=== PATIENT | male | born 1950 | race American Indian/Alaskan Native ===

== ENCOUNTER 2017-11-29 20:52 | Emergency (ER) | payer OTHER, MEDICARE ==
[2017-11-29] MEDS ORDERED: ZOFRAN IV ONE (21:23)
[2017-11-29] MEDS ORDERED: SUBLIMAZE IV ONE (21:23)
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
[2017-11-29] MEDS ORDERED: TYLENOL ONE (22:08)
[2017-11-29] MEDS ORDERED: TYLENOL PO ONE (22:09)
--- NOTE | 2017-11-29 22:19 | Cat Scan Report ---
FINAL REPORT PROCEDURE: CT cervical spine without contrast. TECHNIQUE: Computerized tomography of the cervical spine was performed from the skull base to T1 without contrast material. HISTORY: Left lateral low neck pain. COMPARISON: No prior studies are available for comparison. FINDINGS: The cervical vertebrae have normal height and alignment. There are no fractures. There is no subluxation. There is moderate disc space narrowing from C3-4 through C7-T1. There are small vertebral body osteophytes in the mid and lower cervical spine. The spinal canal is adequately patent. The facet joints appear satisfactory. There is mild osteophytic narrowing of the neural foramina bilaterally at C4-5. There is moderate osteophytic narrowing of the neural foramina bilaterally at C5-6. The prevertebral soft tissues have normal thickness. IMPRESSION: Degenerative disease as described.
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
--- NOTE | 2017-11-29 22:52 | XRay Report ---
FINAL REPORT PROCEDURE: Thoracic spine. TECHNIQUE: Three views. HISTORY: Interscapular back pain. COMPARISON: No prior studies are available for comparison. FINDINGS: The thoracic vertebrae have normal height and satisfactory alignment. There are no fractures. There is no subluxation. The disc spaces appear satisfactory. There is a mild thoracic scoliosis. IMPRESSION: No significant abnormality.
--- NOTE | 2017-11-29 22:55 | XRay Report ---
FINAL REPORT PROCEDURE: Left shoulder. TECHNIQUE: Three views. HISTORY: Left acromioclavicular joint pain. COMPARISON: No prior studies are available for comparison. FINDINGS: The bones appear intact without fracture or dislocation. The joint spaces appear normal. The soft tissues are unremarkable. IMPRESSION: Normal study.
[2017-11-29] MEDS ORDERED: MOTRIN ONE (23:18)
[2017-11-29] MEDS ORDERED: MOTRIN PO ONE (23:30)
[2017-11-29 23:47] VITALS: BP 131/73
== END 2017-11-29 23:42 | disposition home or self-care (01) ==
LOC: ED 20:52
DX: M54.2 Cervicalgia (principal); M54.6 Pain in thoracic spine; M25.512 Pain in left shoulder; V89.2XXA Person injured in unspecified motor-vehicle accident, traffic, initial encounter; Y93.89 Activity, other specified; Y92.89 Other specified places as the place of occurrence of the external cause; Y99.8 Other external cause status
CPT/HCPCS: 70450; 72072; 72125; 99285